=== PATIENT | female | born 1990 ===

== ENCOUNTER 2017-12-26 14:45 | Emergency (ER) | payer OTHER ==
[2017-12-26 14:54] VITALS: RESP 16; O2SAT 99
--- NOTE | 2017-12-26 15:02 | ED PDOC ---
HPI: Abdomen Time Seen by Provider: 12/26/17 15:01 Chief Complaint (Nursing): Abdominal Pain Chief Complaint (Provider): abd pain, fever History Per: Patient Additional Complaint(s): 27-year-old female presents with abdominal pain, dysuria and fever that started 2 days ago. Patient is status post vaginal delivery one month ago. She denies any vaginal bleeding or discharge at this time. Patient has had slight cough and also complaints of sore throat and headache. Patient is currently breast- feeding but she states her baby is also tolerating formula. Patient denies recent sick contacts. PMD: Beka Luna Past Medical History Reviewed: Historical Data, Nursing Documentation, Vital Signs Vital Signs: Last Vital Signs Temp 100.5 F H 12/26/17 16:12 Pulse 127 H 12/26/17 14:52 Resp 16 12/26/17 14:52 BP 123/86 12/26/17 14:52 Pulse Ox 99 12/26/17 16:10 - Medical History PMH: No Chronic Diseases - Surgical History Surgical History: No Surg Hx - Family History Family History: States: No Known Family Hx - Living Arrangements Living Arrangements: With Family - Social History Current smoker - smoking cessation education provided: No Alcohol: None Drugs: Denies - Home Medications Home Medications: Ambulatory Orders Medication Instructions Recorded Ibuprofen [Motrin Tab] 800 mg PO Q8 PRN #20 tab 12/26/17 - Allergies Allergies/Adverse Reactions: Allergies Allergy/AdvReac Type Severity Reaction Status Date / Time No Known Allergies Allergy Verified 12/26/17 14:52 Review of Systems ROS Statement: Except As Marked, All Systems Reviewed And Found Negative Constitutional: Positive for: Fever ENT: Positive for: Throat Pain Cardiovascular: Negative for: Chest Pain Respiratory: Positive for: Cough Gastrointestinal: Positive for: Nausea, Abdominal Pain. Negative for: Vomiting , Diarrhea, Constipation Genitourinary Female: Positive for: Vaginal Discharge, Vaginal Bleeding. Negative for: Dysuria Physical Exam - Reviewed Nursing Documentation Reviewed: Yes Vital Signs Reviewed: Yes - Physical Exam Appears: Positive for: Well, Non-toxic, No Acute Distress Skin: Negative for: Rash Eye Exam: Positive for: Normal appearance ENT: Positive for: Pharyngeal Erythema Neck: Positive for: Normal Cardiovascular/Chest: Positive for: Regular Rate, Rhythm Respiratory: Positive for: Normal Breath Sounds. Negative for: Wheezing, Respiratory Distress Gastrointestinal/Abdominal: Positive for: Soft. Negative for: Tenderness, Distended, Guarding, Rebound Back: Negative for: L CVA Tenderness, R CVA Tenderness Extremity: Positive for: Normal ROM Neurologic/Psych: Positive for: Alert, Oriented - Laboratory Results Result Diagrams: 12/26/17 16:00 12/26/17 16:00 Urine POC: Negative Urine dip results: Positive for: Leukocyte Esterase (trace), Blood (trace). Negative for: Nitrate, Ketones, Glucose, Bilirubin, Protein - ECG O2 Sat by Pulse Oximetry: 99 Pulse Ox Interpretation: Normal - Other Rad CXR X-Ray: Interpreted by Me, Viewed By Me X-Ray Interpretation: no acute finding Medical Decision Making Medical Decision Makin27 y/o female with fever and abd pain Plan: Urine dip test PO tylenol CXR IVF Rapid strep Flu swab VBG PO motrin and tylenol Urine culture CHL/GC culture Repeat vital signs improved. Patient was given rx bactrim DS for UTI and motrin. Advised fluids, rest and PMD follow up in 2-3 days. Disposition - Clinical Impression Clinical Impression: Urinary tract infection - Patient ED Disposition Is Patient to be Admitted: No Counseled Patient/Family Regarding: Studies Performed, Diagnosis, Need For Followup, Rx Given - Disposition Referrals: [facility] [Outside] Disposition: Routine/Home Disposition Time: 17:12 Condition: STABLE Additional Instructions: Take prescription meds as directed. Drink plenty of fluids. Follow up with primary doctor in 2-3 days Prescriptions: Ibuprofen [Motrin Tab] 800 mg PO Q8 PRN #20 tab PRN Reason: Pain, Moderate (4-7) Instructions: Urinary Tract Infections in Adults Forms: [employer] (Indonesian) Print Language: ARMENIAN Results - Lab Results Lab Results: 12/26/17 12/26/17 12/26/17 16:10 16:00 16:00 WBC RBC Hgb Hct MCV MCH MCHC RDW Plt Count MPV Neut % (Auto) Lymph % (Auto) [place] % (Auto) Eos % (Auto) Baso % (Auto) Neut # (Auto) Lymph # (Auto) [place] # (Auto) Eos # (Auto) Baso # (Auto) Neutrophils % (Manual) Lymphocytes % (Manual) Reactive Lymphs % Monocytes % (Manual) Hypersegmented Polys Platelet Estimate RBC Morphology Hypochromasia (manual) Macrocytosis (manual) pO2 63 H VBG pH 7.44 H VBG pCO2 30 L VBG HCO3 22.7 VBG Total CO2 21.3 L VBG O2 Sat (Calc) 95.9 H VBG Base Excess -2.7 L VBG Potassium 3.5 L Sodium 137.0 142 Chloride 105.0 103 Glucose 104 Lactate 1.0 FiO2 21.0 Potassium 3.6 Carbon Dioxide 18 L Anion Gap 25 H BUN 14 Creatinine 0.7 Est GFR ( Amer) > 60 Est GFR (Non-Af Amer) > 60 Random Glucose 103 Calcium 9.4 Total Bilirubin 0.7 AST 36 ALT 72 H Alkaline Phosphatase 118 Total Protein 8.1 Albumin 4.5 Globulin 3.6 Albumin/Globulin Ratio 1.2 Venous Blood Potassium 3.5 L Urine Color Yellow Urine Clarity Slighty-cloudy Urine pH 6.0 Ur Specific [place] 1.024 Urine Protein Negative Urine Glucose (UA) Neg Urine Ketones Negative Urine Blood Negative Urine Nitrate Negative Urine Bilirubin Negative Urine Urobilinogen 0.2-1.0 Ur Leukocyte Esterase Trace Urine Microscopic WBC 1 Ur Squamous Epith Cells 1 Urine Bacteria Rare Influenza Typ A,B (EIA) Grp A Beta Strep Ag 12/26/17 12/26/17 12/26/17 16:00 15:58 15:58 WBC 8.4 RBC 3.79 L Hgb 12.1 Hct 35.2 MCV 92.9 MCH 31.8 H MCHC 34.3 RDW 11.9 Plt Count 185 MPV 8.7 Neut % (Auto) 87.0 H Lymph % (Auto) 7.9 L [place] % (Auto) 4.8 Eos % (Auto) 0.0 Baso % (Auto) 0.3 Neut # (Auto) 7.3 H Lymph # (Auto) 0.7 L [place] # (Auto) 0.4 Eos # (Auto) 0.0 Baso # (Auto) 0.0 Neutrophils % (Manual) 92 H Lymphocytes % (Manual) 4 L Reactive Lymphs % 2 H Monocytes % (Manual) 2 Hypersegmented Polys Present Platelet Estimate Normal RBC Morphology Normal Hypochromasia (manual) Slight Macrocytosis (manual) Slight pO2 VBG pH VBG pCO2 VBG HCO3 VBG Total CO2 VBG O2 Sat (Calc) VBG Base Excess VBG Potassium Sodium Chloride Glucose Lactate FiO2 Potassium Carbon Dioxide Anion Gap BUN Creatinine Est GFR ( Amer) Est GFR (Non-Af Amer) Random Glucose Calcium Total Bilirubin AST ALT Alkaline Phosphatase Total Protein Albumin Globulin Albumin/Globulin Ratio Venous Blood Potassium Urine Color Urine Clarity Urine pH Ur Specific [place] Urine Protein Urine Glucose (UA) Urine Ketones Urine Blood Urine Nitrate Urine Bilirubin Urine Urobilinogen Ur Leukocyte Esterase Urine Microscopic WBC Ur Squamous Epith Cells Urine Bacteria Influenza Typ A,B (EIA) Negative for flu a/b Grp A Beta Strep Ag Negative
[2017-12-26] MEDS ORDERED: Sodium Chloride 0.9% 1,000 ML IV STA (15:20)
[2017-12-26 16:07] LABS: VENOUS BLOOD GAS BASE EXCESS -2.7 mmol/L (0.0-2.0); VENOUS BLOOD GAS PCO2 30 mmHg (40-60); VENOUS BLOOD GAS PO2 63 mm/Hg (30-55); VENOUS BLOOD PH 7.44 (7.32-7.43)
[2017-12-26 16:13] LABS: BASO % 0.3 % (0.0-2.0); HEMOGLOBIN 12.1 g/dL (12.0-16.0); LYMPH # 0.7 K/uL (1.0-4.3); LYMPH % 7.9 % (20.0-40.0); MEAN CELL VOLUME 92.9 fl (81.0-99.0); MEAN CORPUSCULAR HEMOGLOBIN 31.8 pg (27.0-31.0); MEAN CORPUSCULAR HGB CONC 34.3 g/dL (33.0-37.0); MEAN PLATELET VOLUME 8.7 fl (7.2-11.7); MONO # 0.4 K/uL (0.0-0.8); MONO % 4.8 % (0.0-10.0); NEUT # 7.3 K/uL (1.8-7.0); NRBC % 0.1 % (0.0-0.0); PLATELET COUNT 185 K/uL (130-400); RBC 3.79 Mil/uL (3.80-5.20); RED CELL DISTRIBUTION WIDTH 11.9 % (11.5-14.5); WHITE BLOOD COUNT 8.4 K/uL (4.8-10.8)
[2017-12-26 16:21] LABS: ALB/GLOB RATIO 1.2 (1.0-2.1); ALBUMIN 4.5 g/dL (3.5-5.0); ALT/SGPT 72 U/L (9-52); AST/SGOT 36 U/L (14-36); BLOOD UREA NITROGEN 14 mg/dl (7-17); CALCIUM 9.4 mg/dL (8.4-10.2); GFR AFRICAN-AMERICAN > 60; GFR NON-AFRICAN AMERICAN > 60
[2017-12-26 16:30] LABS: SQUAMOUS EPITHIAL 1 /hpf (0-5); URINE BACTERIA RARE (<OCC); URINE BILIRUBIN NEGATIVE (NEGATIVE); URINE BLOOD NEGATIVE (NEGATIVE); URINE CLARITY SLIGHTY-CLOUDY (Clear); URINE COLOR YELLOW (YELLOW); URINE GLUCOSE (UA) NEG (Normal); URINE LEUKOCYTE ESTERASE TRACE Leu/uL (Negative); URINE PROTEIN NEGATIVE (NEGATIVE); URINE UROBILINOGEN 0.2-1.0 mg/dL (0.2-1.0)
[2017-12-26 17:03] LABS: LYMPHOCYTE 4 % (20-50); MONOCYTE 2 % (0-10); NEUTROPHIL 92 % (42-75); REACTIVE LYMPHOCYTES 2 % (0-0); TOTAL CELLS COUNTED 100
[2017-12-26 17:04] LABS: HYPOCHROMIC SLIGHT
[2017-12-26 17:05] LABS: HYPERSEGMENTATION PRESENT
[2017-12-26 17:06] LABS: PLATELET ESTIMATE NORMAL (NORMAL)
[2017-12-26 17:24] VITALS: BP 99/68; PULSE 97; TEMP 99.4
--- NOTE | 2017-12-26 17:25 | RAD ---
HISTORY: COMPARISON: No prior. TECHNIQUE: Chest PA and lateral FINDINGS: LINES AND TUBES: None. LUNG AND PLEURA: The lungs are well inflated and clear. No pleural effusions or pneumothorax. HEART AND MEDIASTINUM: The heart is not enlarged. The hilar and mediastinal contours are within normal limits. SKELETAL STRUCTURES: The bony structures are within normal limits for the patient's age. VISUALIZED UPPER ABDOMEN: Normal. OTHER FINDINGS: None. IMPRESSION: No active pulmonary disease.
== END 2017-12-26 17:44 | disposition home or self-care (01) ==
LOC: H.ER 14:45
DX: N39.0 Urinary tract infection, site not specified (principal)
CPT/HCPCS: 71046; 80053; 81003; 81025; 82803; 85025; 87040; 87086; 87430; 87491; 87591; 87804; 96360; 99284; J7040

== ENCOUNTER 2018-10-14 14:05 | Emergency (ER) | payer OTHER ==
[2018-10-14 14:24] VITALS: BP 132/77; PULSE 92; RESP 18; TEMP 98.2; O2SAT 99
[2018-10-14] MEDS ORDERED: Naproxen 500 MG TAB PO ONE ×2 (14:55→15:49)
--- NOTE | 2018-10-14 16:37 | ED PDOC ---
HPI: General Adult Time Seen by Provider: 10/14/18 14:34 Chief Complaint (Nursing): Headache Chief Complaint (Provider): Cough, congestion, headache History Per: Patient History/Exam Limitations: no limitations Onset/Duration Of Symptoms: Days (x4) Current Symptoms Are (Timing): Still Present Additional Complaint(s): 28 year old female presents to the ED with cough, congestion, sore throat, and headache for the past 4 days. Patient states she was seen in the clinic yesterday and was prescribed Amoxicillin for a throat infection. Patient states this morning, she developed bilateral facial pain which is worse when she bends the neck forward. She also states headache became worse prompting ED visit. She states she has been taking Tylenol with the last dose at 11am this morning. She also reports 1 episode of vomiting yesterday and no vomiting today. Patient continues to be nauseous though. Patient reports fever at onset of symptoms which has since resolved. Denies head injury, LOC, hematemsis, abdominal pain, rash, shortness of breath, or chest pain. PMD: none provided Past Medical History Reviewed: Historical Data, Nursing Documentation, Vital Signs Vital Signs: Last Vital Signs Temp 98.2 F 10/14/18 14:23 Pulse 92 H 10/14/18 14:23 Resp 18 10/14/18 14:23 BP 132/77 10/14/18 14:23 Pulse Ox 99 10/14/18 14:23 - Medical History PMH: Migraine - Surgical History Surgical History: No Surg Hx - Family History Family History: States: No Known Family Hx - Home Medications Home Medications: Ambulatory Orders Medication Instructions Recorded Ibuprofen [Motrin Tab] 800 mg PO Q8 PRN #20 tab 12/26/17 Amoxicillin/Clavulanate [Augmentin 1 tab PO BID #20 tab 10/14/18 500 MG-125 MG] Fluticasone Propionate [Flonase] 2 spr NS DAILY PRN #1 bottle 10/14/18 Pseudoephedrine HCl [Sudafed] 2 tab PO Q8 PRN #10 tablet 10/14/18 - Allergies Allergies/Adverse Reactions: Allergies Allergy/AdvReac Type Severity Reaction Status Date / Time No Known Allergies Allergy Verified 10/14/18 14:22 Review of Systems ROS Statement: Except As Marked, All Systems Reviewed And Found Negative Constitutional: Negative for: Fever ENT: Positive for: Nose Congestion, Throat Pain, Other (Facial pain) Cardiovascular: Negative for: Chest Pain Respiratory: Positive for: Cough. Negative for: Shortness of Breath Gastrointestinal: Positive for: Nausea, Vomiting. Negative for: Abdominal Pain, Hematemesis Musculoskeletal: Negative for: Other (Head injury) Skin: Negative for: Rash Neurological: Positive for: Headache. Negative for: Other (LOC) Physical Exam - Reviewed Nursing Documentation Reviewed: Yes Vital Signs Reviewed: Yes - Physical Exam Appears: Positive for: No Acute Distress Head Exam: Positive for: ATRAUMATIC, NORMAL INSPECTION, NORMOCEPHALIC Skin: Positive for: Normal Color, Warm, Dry Eye Exam: Positive for: Normal appearance ENT: Positive for: TM Is/Are (nonerythematous or nonbulging bilaterally), Sinus Pain/Drainage (thick green), Nasal Congestion. Negative for: Pharyngeal Erythema, Tonsillar Exudate (or erythema) Neck: Positive for: Normal, Painless ROM, Supple Cardiovascular/Chest: Positive for: Regular Rate, Rhythm Respiratory: Positive for: Normal Breath Sounds. Negative for: Wheezing, Respiratory Distress Extremity: Positive for: Normal ROM Neurologic/Psych: Positive for: Alert, Oriented (x3), Gait (steady and unassisted) - ECG O2 Sat by Pulse Oximetry: 99 (RA) Pulse Ox Interpretation: Normal Medical Decision Making Medical Decision Making: Initial Impression: Sinusitis Initial Plan: --ED urine --Naproxen 500mg PO --Reglan 10mg PO 17:06 On reevaluation, patient reports good relief of headache. Scribe Attestation: Documented by Nate Patton acting as a scribe for Tal RICHARDS Provider Scribe Attestation: All medical record entries made by the Scribe were at my direction and personally dictated by me. I have reviewed the chart and agree that the record accurately reflects my personal performance of the history, physical exam, medical decision making, and the department course for this patient. I have also personally directed, reviewed, and agree with the discharge instructions and disposition. Disposition - Clinical Impression Clinical Impression: Sinusitis - Patient ED Disposition Is Patient to be Admitted: No - Disposition Referrals: [facility] [Outside] Disposition: Routine/Home Disposition Time: 17:00 Condition: IMPROVED Additional Instructions: FOLLOW UP WITH YOUR DOCTOR FOR FURTHER EVALUATION RETURN TO ED IMMEDIATELY IF SYMPTOMS WORSEN JAN CRUZ, thank you for letting us take care of you today. Your provider was Levon Chanel MD and you were treated for HEADACHE,VOMITING. The emergency medical care you received today was directed at your acute symptoms. If you were prescribed any medication, please fill it and take as directed. It may take several days for your symptoms to resolve. Return to the Emergency Department if your symptoms worsen, do not improve, or if you have any other problems. Please contact your doctor or call one of the physicians/clinics you have been referred to that are listed on the Patient Visit Information form that is included in your discharge packet. Bring any paperwork you were given at discharge with you along with any medications you are taking to your follow up visit. Our treatment cannot replace ongoing medical care by a primary care provider outside of the emergency department. Thank you for allowing the [facility] team to be part of your care today. If you had an X-Ray or CT scan: A Radiologist will review the ED reading if any change in treatment is needed we will contact you. If you had a blood, urine, or wound culture: It will take several days for the results, if any change in treatment is needed we will contact you. If you had an STI test: It will take 48 hours for the results. Please call after 1 week if you have not heard back. Prescriptions: Amoxicillin/Clavulanate [Augmentin 500 MG-125 MG] 1 tab PO BID #20 tab Fluticasone Propionate [Flonase] 2 spr NS DAILY PRN #1 bottle PRN Reason: Allergy Symptoms Pseudoephedrine HCl [Sudafed] 2 tab PO Q8 PRN #10 tablet PRN Reason: Nasal Congestion Instructions: Sinusitis, Adult (DC) Forms: [employer] (Cymro) Print Language: YORUBA
== END 2018-10-14 16:55 | disposition home or self-care (01) ==
LOC: H.ER 14:05
DX: J32.9 Chronic sinusitis, unspecified (principal)